=== PATIENT | female | born 1975 | race Caucasian/White ===

== ENCOUNTER 2017-11-21 16:17 | Emergency (ER) | payer BC ==
[~2017-11-21] VITALS: Ht 165.1 cm; Wt 84.1 kg
[~2017-11-21 16:17] MED LIST: IBUPROFEN600 MG PO; PERCOCET 10/3251 TA1 PO; PRENATAL COMPLE1 TAB PO
[2017-11-21 17:15] VITALS: Ht 165.1 cm; Wt 84.1 kg
[2017-11-21 18:06] LABS: BASOPHILS 0.2 % (0-2); EOSINOPHILS 0.9 % (0-7); HEMATOCRIT 41.7 % (36.0-48.0); HEMOGLOBIN 14.1 g/dL (12-16); IMMATURE GRANULOCYTES 0.3 % (0-5); LYMPHOCYTES 19.7 % (15-50); MCH 32.2 pg (26.0-34.0); MCHC 33.8 g/dL (31.0-37.0); MCV 95.2 fL (80.0-100.0); MEAN PLATELET VOLUME 11.3 fL (7.4-10.4); MONOCYTES 5.4 % (2-11); NEUTROPHILS 73.5 % (40-80); RBC 4.38 10x6/uL (4.00-5.40); RDW 12.5 % (11.5-14.5)
[2017-11-21 18:07] LABS: PLATELET COUNT 222 10x3/uL (130-400)
[2017-11-21 18:15] LABS: APPEARANCE CLEAR (CLEAR); BILIRUBIN NEGATIVE (NEGATIVE); COLOR YELLOW (YELLOW); GLUCOSE NEGATIVE (NEGATIVE); KETONE NEGATIVE (NEGATIVE); NITRITE NEGATIVE (NEGATIVE); PROTEIN NEGATIVE (NEGATIVE); UROBILINOGEN NORMAL (NORMAL)
[2017-11-21 18:28] LABS: ANION GAP 11.4 mmol/L (8-16); BILIRUBIN - TOTAL 0.45 mg/dL (0.2-1.3); CALCIUM 10.2 mg/dL (8.5-10.1); CARBON DIOXIDE 27.8 mmol/L (21.0-32.0); CREATININE - SERUM 1.1 mg/dL (0.6-1.3); POTASSIUM - SERUM 4.2 mmol/L (3.5-5.1); PROTEIN - SERUM 8.1 g/dL (6.4-8.2)
[2017-11-21] MEDS ORDERED: OMNICEF125 MG/5 M PO (19:59)
[2017-11-21] MEDS ORDERED: IPRATROPIUM BR42 MCG NASAL (20:17)
[2017-11-21] MEDS ORDERED: MEDROL DOSE PACK4 MG PO (20:17)
[2017-11-21] MEDS ORDERED: ZPAK PO (20:17)
[2017-11-21 21:00] VITALS: BP 138/87
== END 2017-11-21 20:45 | disposition home or self-care (01) ==
LOC: D.ER 16:17
PROVIDERS: Family Medicine
DX: J01.90 Acute sinusitis, unspecified (principal); R51 Headache; H66.93 Otitis media, unspecified, bilateral; R42 Dizziness and giddiness; I10 Essential (primary) hypertension

== ENCOUNTER → 2018-06-08 20:10 | Outpatient (CLI) | payer MEDICAID ==
[2017-11-21 17:15] VITALS: BMI 30.8
[~2018-06-08 20:10] MED LIST changes: +IPRATROPIUM BR42 MCG NASAL; +MEDROL DOSE PACK4 MG PO; +OMNICEF125 MG/5 M PO; +ZPAK PO
== END | disposition home or self-care (01) ==
LOC: D.MAMMO 13:00
DX: Z12.31 Encounter for screening mammogram for malignant neoplasm of breast (principal)

== ENCOUNTER 2018-07-02 19:00 | Outpatient (CLI) | payer MEDICAID ==
[2017-11-21 17:15] VITALS: BMI 30.8
== END 2018-07-02 23:59 | disposition home or self-care (01) ==
LOC: D.MAMMO 19:00
PROVIDERS: ATTEND Obstetrics & Gynecology Obstetrics
DX: R92.8 Other abnormal and inconclusive findings on diagnostic imaging of breast (principal)

== ENCOUNTER 2019-01-03 08:00 | Outpatient (CLI) | payer MEDICAID ==
[2017-11-21 17:15] VITALS: BMI 30.8
== END 2019-01-03 23:59 | disposition home or self-care (01) ==
LOC: D.MAMMO 08:00
PROVIDERS: ATTEND Nurse Practitioner Women's Health
DX: R92.8 Other abnormal and inconclusive findings on diagnostic imaging of breast (principal)